=== PATIENT | female | born 1970 | race Caucasian/White ===

== ENCOUNTER → 2017-02-24 | Outpatient (CLI) | payer BC ==
--- NOTE | 2017-02-25 08:08 | XR ---
EXAMINATION TYPE: XR lumbosacral spine min 4V DATE OF EXAM: 02/24/2017 5:01 PM CLINICAL HISTORY: pain COMPARISON: NONE TECHNIQUE: Frontal, lateral, and oblique images of the lumbar spine are obtained. FINDINGS: There are 5 lumbar type vertebral bodies identified. The lumbar spine shows satisfactory alignment without evidence of acute fracture or dislocation. Vertebral body heights are within normal limits. Vacuum disc changes L5-S1 with the ventral spondylosis. Facet joint arthropathy detected. The overlying soft tissue appears unremarkable. IMPRESSION: No acute fracture or dislocation is seen in the lumbar spine.ICD 10 NO FRACTURE, INITIAL EVALUATION
== END ==
LOC: RADXRYALE 16:35
PROVIDERS: ATTEND Internal Medicine
DX: M54.32 Sciatica, left side (principal)
CPT/HCPCS: 72110

== ENCOUNTER → 2017-06-03 | Outpatient (CLI) | payer BC ==
--- NOTE | 2017-06-04 08:57 | MM ---
Reason for exam: screening (asymptomatic). History: Family history of breast cancer in paternal aunt. Physical Findings: A clinical breast exam by your physician is recommended on an annual basis and results should be correlated with mammographic findings. MG Screening Mammo w CAD Bilateral CC and MLO view(s) were taken. No prior studies available for comparison. There are scattered fibroglandular densities. Focal asymmetry bilaterally, in the left breast middle depth outer quadrant 8cm from nipple and in the right breast middle depth central position 6cm from nipple. These results were verbally communicated with the patient and result sheet given to the patient on 06/03/17. ASSESSMENT: Incomplete: need additional imaging evaluation, BI-RAD 0 RECOMMENDATION: Special view mammogram of both breasts. If lesion persists on supplemental views, image directed ultrasound is recommended. [facility] will attempt to contact patient to return for supplemental views and ultrasound if indicated.
== END | disposition home or self-care (01) ==
LOC: RADMAMWWP 12:45
PROVIDERS: ATTEND Internal Medicine
DX: Z12.31 Encounter for screening mammogram for malignant neoplasm of breast (principal)

== ENCOUNTER → 2017-06-16 | Outpatient (CLI) | payer BC ==
--- NOTE | 2017-06-18 06:56 | MM ---
Reason for exam: additional evaluation requested from abnormal screening. Last mammogram was performed less than 1 month ago. History: Family history of breast cancer in paternal aunt. Physical Findings: Nurse did not find any significant physical abnormalities on exam. MG Work Up Mamm w CAD BILAT Bilateral CC, MLO, LM, and spot compression CC view(s) were taken. Prior study comparison: June 03, 2017, bilateral MG screening mammo w CAD. There are scattered fibroglandular densities. Right asymmetry, compresses and compatible with fibroglandular tissue. Left asymmetry persists on spot compression and rolled views, precautionary ultrasound was performed. These results were verbally communicated with the patient and result sheet given to the patient on 06/16/17. ASSESSMENT: Incomplete: need additional imaging evaluation, BI-RAD 0 RECOMMENDATION: Ultrasound of the left breast. (Upper outer quadrant).
--- NOTE | 2017-06-18 07:11 | USB ---
Reason for exam: additional evaluation requested from abnormal screening. History: Family history of breast cancer in paternal aunt. US Breast Workup Limited LT Left breast ultrasound demonstrates a 3 x 2 x 4mm oval too small to characterize lesion at 2 o'clock, mammographic asymmetry may correspond, probably benign. 6 month follow up. Sonographic probable cyst although deep and not definite, increased through transmission probably benign. 6 month follow up recommended. These results were verbally communicated with the patient and result sheet given to the patient on 06/16/17. ASSESSMENT: Probably benign, BI-RAD 3 RECOMMENDATION: Follow-up diagnostic mammogram and ultrasound of the left breast in 6 months.
== END | disposition home or self-care (01) ==
LOC: RADMAMWWP 15:55
PROVIDERS: ATTEND Internal Medicine
DX: R92.8 Other abnormal and inconclusive findings on diagnostic imaging of breast (principal)
CPT/HCPCS: 76642; G0204

== ENCOUNTER → 2018-02-23 | Outpatient (CLI) | payer BC ==
--- NOTE | 2018-02-23 11:17 | MM ---
Reason for exam: follow-up at short interval from prior study. Last mammogram was performed 8 months ago. History: Family history of breast cancer in paternal aunt. Physical Findings: Nurse did not find any significant physical abnormalities on exam. MG Diagnostic Mammo w CAD [facility] Bilateral CC and MLO view(s) were taken. Prior study comparison: June 16, 2017, bilateral MG work up mamm w CAD BILAT. June 03, 2017, bilateral MG screening mammo w CAD. There are scattered fibroglandular densities. There is no discrete abnormality including area of concern. No significant new findings when compared with previous films. These results were verbally communicated with the patient and result sheet given to the patient on 02/23/18. ASSESSMENT: Negative, BI-RAD 1 RECOMMENDATION: Routine screening mammogram of both breasts in 1 year.
== END | disposition home or self-care (01) ==
LOC: RADMAMWWP 08:44
PROVIDERS: ATTEND Internal Medicine
DX: R92.8 Other abnormal and inconclusive findings on diagnostic imaging of breast (principal)
CPT/HCPCS: 77066

== ENCOUNTER → 2018-09-29 | Outpatient (CLI) | payer OTHER ==
--- NOTE | 2018-09-29 15:39 | US ---
EXAMINATION TYPE: US pelvic complete DATE OF EXAM: 09/29/2018 COMPARISON: NONE CLINICAL HISTORY: N92.1 Metrorrhagia. Pt states constant vaginal bleeding x 3 months TECHNIQUE: Transabdominal (TA). Transabdominal sonographic images of the pelvis were acquired. EXAM MEASUREMENTS: Uterus: 11.2 x 6.2 x 6.7 cm Endometrial Stripe: 0.8 cm Right Ovary: 2.2 x 1.8 x 1.4 cm Left Ovary: 2.4 x 1.7 x 1.9 cm 1. Uterus: Anteverted Heterogeneous, "bulky" in appearance 2. Endometrium: Small amount of fluid within canal 3. Right Ovary: wnl 4. Left Ovary: wnl 5. Bilateral Adnexa: wnl 6. Posterior cul-de-sac: wnl IMPRESSION: 1. Heterogeneous and bulky uterus is nonspecific. Although no discrete fibroids are seen in this can occasionally be seen with diffuse fibroid change and could be correlated with MRI as clinically warra nted. 2. A small amount of free fluid is seen within the endometrial canal which may be related to the hist ory of vaginal bleeding. Endometrial stripe measures 8 mm correlate with the phase of the menstrual c ycle.
== END | disposition home or self-care (01) ==
LOC: RADUSWWP 14:27
PROVIDERS: ATTEND Internal Medicine
DX: N85.2 Hypertrophy of uterus (principal)
CPT/HCPCS: 76856